=== PATIENT | female | born 1970 | race African-American/Black ===

== ENCOUNTER 2016-11-21 14:07 | Inpatient (IN) | payer OTHER ==
[2016-11-21 16:32] VITALS: BMI 31.3
--- NOTE | 2016-11-21 17:24 | HP ---
Admission ROS [facility] Chief Complaint: I WANT TO GO TO REHAB Allergies/Adverse Reactions: Allergies Allergy/AdvReac Type Severity Reaction Status Date / Time ampicillin Allergy Severe Swelling Verified 11/21/16 16:55 ciprofloxacin [From Cipro] Allergy Severe Swelling Verified 11/21/16 16:55 ciprofloxacin HCl Allergy Severe Swelling Verified 11/21/16 16:55 [From Cipro] kiwi Allergy Severe Rash Verified 11/21/16 16:55 History of Present Illness: 46 YEARS OLD FEMALE WITH LONG HISTORY OF ALCOHOL DEPENDENCE, HAS HYPERTENSION, CHRONIC PANCREATITIS, ANXIETY AND DEPRESSION, FELL "WEEK" AGO TREATED AT [facility] NEGATIVE CT SCAN OF THE HEAD, FEW BRUISES SCATTLE, LONGEST SOBRIETY 2 YEARS IS ADMITTED TO REHAB Exam Limitations: No Limitations - Ebola screening Have you traveled outside of the country in the last 21 days: No Have you had contact with anyone from an Ebola affected area: No Have you been sick,other than usual withdrawal symptoms: No Do you have a fever: No - Review of Systems Constitutional: Weight Stable EENT: reports: Other (EYE GLASSES) Respiratory: reports: No Symptoms reported Cardiac: reports: No Symptoms Reported GI: reports: Diarrhea : reports: No Symptoms Reported Musculoskeletal: reports: Joint Pain (KNEES), Muscle Weakness (LEFT LEG = CANE) Integumentary: reports: Bruising Neuro: reports: No Symptoms reported Endocrine: reports: No Symptoms Reported Hematology: reports: Easy Bruising Psychiatric: reports: Judgement Intact, Orientated x3, Anxious, Depressed Other Systems: Reviewed and Negative Patient History - Patient Medical History Hx Anemia: Yes (NOT ON MEDS) Hx Asthma: No Hx Chronic Obstructive Pulmonary Disease (COPD): No Hx Cancer: No Hx Cardiac Disorders: No Hx Congestive Heart Failure: No Hx Hypertension: Yes (ON HCTZ) Hx Hypercholesterolemia: No Hx Pacemaker: No HX Cerebrovascular Accident: No Hx Seizures: Yes (alcohol related once in 2010 NO TREATMENT) Hx Dementia: No Hx Diabetes: No Hx Gastrointestinal Disorders: Yes (PANCREATIC INSUFFICIENCY HAS NOT TAKEN CREON IN MONTHS) Hx Liver Disease: Yes (FATTY LIVER) Hx Genitourinary Disorders: No Hx Sexually Transmitted Disorders: No Hx Renal Disease (ESRD): No Hx Thyroid Disease: No Hx Human Immunodeficiency Virus (HIV): No Hx Hepatitis C: No Hx Depression: Yes Hx Suicide Attempt: No Hx Bipolar Disorder: No Hx Schizophrenia: No - Patient Surgical History Past Surgical History: No Hx Neurologic Surgery: No Hx Cataract Extraction: No Hx Cardiac Surgery: No Hx Lung Surgery: No Hx Breast Surgery: No Hx Breast Biopsy: No Hx Abdominal Surgery: No Hx Appendectomy: No Hx Cholecystectomy: No Hx Genitourinary Surgery: No Hx Section: No Hx Orthopedic Surgery: No - PPD History Previous Implant?: Yes Documented Results: Negative w/proof Implanted On Prior [facility] Admission?: Yes Date: 01/28/16 Results: 0mm PPD to be Administered?: No - Reproductive History Patient is a Female of Child Bearing Age (11 -55 yrs old): Yes Last Menstrual Period: 10/21/16 Patient : No - Smoking Cessation Smoking history: Never smoked Have you smoked in the past 12 months: No Hx Chewing Tobacco Use: No Initiated information on smoking cessation: No - Substance & Tx. History Hx Alcohol Use: Yes Hx Substance Use: No Substance Use Type: Alcohol Hx Substance Use Treatment: Yes - Substances Abused Alcohol Route: Oral Frequency: Daily Amount used: 1 1/2 PINT VOLKA + BEER Age of first use: 25 Date of Last Use: 11/14/16 Family Disease History - Family Disease History Family Disease History: Diabetes: Mother (), CA: Father (PROSTATE), Other: Mother Admission Physical Exam S - Vital Signs Vital Signs: Vital Signs - 24 hr 11/21/16 16:29 Temperature 96.2 F L Pulse Rate 89 Respiratory 20 Rate Blood Pressure 149/90 - Physical General Appearance: Yes: No Apparent Distress, Appropriately Dressed, Obese HEENTM: Yes: Hearing grossly Normal, Normal ENT Inspection, Normocephalic, Normal Voice Respiratory: Yes: Chest Non-Tender, Lungs Clear, Normal Breath Sounds, No Respiratory Distress, No Accessory Muscle Use Neck: Yes: Supple, Trachea in good position Breast: Yes: Breasts Symetrical Cardiology: Yes: Regular Rhythm, Regular Rate, S1, S2 Abdominal: Yes: Non Tender, Soft, Increased Bowel Sounds Genitourinary: Yes: Within Normal Limits Back: Yes: Normal Inspection Musculoskeletal: Yes: full range of Motion, Gait Steady, Muscle Pain (KNEES), Muscle weakness (CANE) Extremities: Yes: Non-Tender Neurological: Yes: Fully Oriented, Alert, Motor Strength 5/5, Depressed Affect Integumentary: Yes: Warm Lymphatic: Yes: Within Normal Limits - Diagnostic (1) Alcohol dependence with uncomplicated withdrawal Current Visit: Yes Status: Acute (2) Hypertension Current Visit: Yes Status: Acute Qualifiers: Hypertension type: essential hypertension Qualified Code(s): I10 - Essential (primary) hypertension (3) Pancreatic insufficiency Current Visit: Yes Status: Acute (4) GERD (gastroesophageal reflux disease) Current Visit: Yes Status: Acute Qualifiers: Esophagitis presence: without esophagitis Qualified Code(s): K21.9 - Gastro-esophageal reflux disease without esophagitis (5) Fatty liver Current Visit: Yes Status: Chronic (6) Use of cane as ambulatory aid Current Visit: Yes Status: Acute Cleared for Admission [facility] - Detox or Rehab Detox Regimen/Protocol: Not Applicable Claeared for Rehab Admission: Yes [facility] Breath Alcohol Content Breath Alcohol Content: 0 Urine Pregancy Test - Result Urine Test Results: Negative- NO Line Present Urine Drug Screen - Results Drug Screen Negative: No Urine Drug Screen Results: BZO-Benzodiazepines
[2016-11-21] MEDS ORDERED: MAGNESIUM CITRATE 300 ML BOTTLE PO PRN (17:31)
[2016-11-21] MEDS ORDERED: MENTHOL/PHENOL 1 EACH UD MM PRN (17:31)
[2016-11-21] MEDS ORDERED: ACETAMINOPHEN 325 MG TABLET (FP) PO PRN (17:31)
[2016-11-21] MEDS ORDERED: P-EPHED 60MG/TRIPROLIDI 2.5MG TABLET PO PRN (17:31)
[2016-11-21] MEDS ORDERED: LOPERAMIDE HCL 2 MG CAPSULE PO PRN (17:31)
[2016-11-21] MEDS ORDERED: guaiFENesin/D-METHORPHAN HB 10 ML UNIT-DOSE CUPS PO PRN (17:31)
[2016-11-21] MEDS ORDERED: MAG HYDROX/AL HYDROX/SIMETH 30 ML UNIT-DOSE CUP PO PRN (17:31)
[2016-11-21] MEDS ORDERED: IBUPROFEN 400 MG TABLET (FP) PO PRN (17:31)
[2016-11-21] MEDS ORDERED: cloNIDine HCL 0.1 MG TABLET PO PRN (17:33)
--- NOTE | 2016-11-21 20:47 | PN ---
[facility] Progress Note Note: Psychiatry Attending-director of investigations note : Asked to enter orders for trazodone + buspar (patient's request). Chart reviewed.Ms Guzmán is already known from this service. Medications reconciled.Pharmacy claims (10/18/16) revisited. Doses verified. Intervention : Buspar 10 mg po bid Trazodone 50 mg po hs. Discussed with nurse on duty.
[2016-11-21] MEDS: THIAMINE HCL 100 MG TABLET (FP) PO SCH (21:48)
[2016-11-21] MEDS: busPIRone HCL 10 MG TABLET (FP) PO SCH (21:49)
[2016-11-21] MEDS: traZODone HCL 50 MG TABLET (FP) PO SCH (21:49)
[2016-11-21] MEDS: RANITIDINE HCL 150 MG TABLET (FP) PO SCH (21:49)
[2016-11-21 23:10] LABS: URINE APPEARANCE CLEAR; URINE BILIRUBIN NEGATIVE (NEGATIVE); URINE BLOOD NEGATIVE (NEGATIVE); URINE COLOR LT. YELLOW; URINE GLUCOSE (UA) NEGATIVE (NEGATIVE); URINE KETONE NEGATIVE (NEGATIVE); URINE LEUK ESTERASE NEGATIVE (NEGATIVE); URINE NITRITE NEGATIVE (NEGATIVE); URINE PROTEIN NEGATIVE (NEGATIVE); URINE UROBILINOGEN 0.2 E.U/dl E.U./dl (0.2-1.0)
[2016-11-22] MEDS ORDERED: PT OWN MED DRAWER 7, Y5N ONE ×4 (03:18→22:48)
[2016-11-22] MEDS: LIPASE/PROTEASE/AMYLASE 6,000 UNIT CAPSULE PO SCH ×3 (07:27→18:06)
[2016-11-22 10:13] LABS: MCH 26.7 pg (25.7-33.7); MEAN CELL VOLUME 83.5 fl (80-96); MEAN PLT VOLUME 8.7 fl (7.5-11.1); PLATELET COUNT 175 K/MM3 (134-434); RDW 27.5 % (11.6-15.6); WHITE BLOOD COUNT 7.3 K/mm3 (4.0-10.0)
[2016-11-22] MEDS: busPIRone HCL 10 MG TABLET (FP) PO SCH ×2 (10:15→21:08)
[2016-11-22] MEDS: PRENATAL VITAMINS W/ FOLIC ACID TABLET (FP) PO SCH (10:15)
[2016-11-22] MEDS: HYDROCHLOROTHIAZIDE 12.5 MG CAPSULE (FP) PO SCH (10:15)
[2016-11-22] MEDS: RANITIDINE HCL 150 MG TABLET (FP) PO SCH (10:15)
[2016-11-22 10:47] LABS: ALBUMIN 3.3 g/dl (3.4-5.0); ALK PHOS 83 U/L (45-117); ANION GAP 10 (8-16); BILIRUBIN,TOTAL 0.6 mg/dL (0.2-1.0); CALCIUM 8.1 mg/dL (8.5-10.1); CO2 26 mmol/L (21-32); CREATININE 0.7 mg/dL (0.55-1.02); GLUCOSE,RANDOM 109 mg/dL (74-106); SGOT/AST 42 U/L (15-37); SGPT/ALT 44 U/L (12-78); THYROID STIMULATING HORMONE 8.32 uIU/ml (0.358-3.74); TOT PROT 6.9 g/dl (6.4-8.2)
--- NOTE | 2016-11-22 16:17 | EKG ---
Test Reason : Blood Pressure : / mmHG Vent. Rate : 106 BPM Atrial Rate : 106 BPM P-R Int : 160 ms QRS Dur : 090 ms QT Int : 352 ms P-R-T Axes : 062 047 058 degrees QTc Int : 467 ms SINUS TACHYCARDIA NONSPECIFIC T WAVE ABNORMALITY ABNORMAL ECG NO PREVIOUS ECGS AVAILABLE Confirmed by ROCHELLE JOINER MD ([id number]) on 11/22/2016 4:16:45 PM Referred By: Brittnee Martinez Confirmed By:ROCHELLE JOINER MD
[2016-11-22] MEDS: traZODone HCL 50 MG TABLET (FP) PO SCH (21:08)
[2016-11-22] MEDS: THIAMINE HCL 100 MG TABLET (FP) PO SCH (21:08)
[2016-11-23] MEDS: diphenhydrAMINE HCL 50 MG CAPSULE PO PRN ×2 (00:40→21:18)
[2016-11-23] MEDS ORDERED: PT OWN MED DRAWER 7, Y5N ONE ×3 (03:40→16:58)
[2016-11-23] MEDS: LIPASE/PROTEASE/AMYLASE 6,000 UNIT CAPSULE PO SCH ×3 (07:29→17:12)
[2016-11-23] MEDS: IBUPROFEN 600 MG TABLET (FP) PO PRN (09:01)
--- NOTE | 2016-11-23 10:03 | HP ---
Psychiatrist Admission - Data Date of interview: 11/23/16 Admission source: [facility] Identifying data: This is the third admission to [address] [place] [address] for this 46 years old single AA female michelle,domiciled, supported by [facility]. Medical History: GERD,Fatty liver,Pancreatic insufficiency,HTN,Anemia, Cholecystitis. Psychiatric History: Patient was dx with Asperger's syndrome since HS.She also admits severe anxiety.Patient was dx with Mood disorder and is under care of at [facility] in the [place].Current medications: Buspar 10 mg po bid and Trazodone 50 mg po hs. Physical/Sexual Abuse/Trauma History: denies Vital Signs: Vital Signs - 24 hr 11/22/16 11/23/16 11/23/16 10:14 03:30 06:54 Temperature 97.5 F L Pulse Rate 96 H 82 Respiratory 16 18 Rate Blood Pressure 130/80 116/70 Allergies/Adverse Reactions: Allergies Allergy/AdvReac Type Severity Reaction Status Date / Time ampicillin Allergy Severe Swelling Verified 11/21/16 16:55 ciprofloxacin [From Cipro] Allergy Severe Swelling Verified 11/21/16 16:55 ciprofloxacin HCl Allergy Severe Swelling Verified 11/21/16 16:55 [From Cipro] kiwi Allergy Severe Rash Verified 11/21/16 16:55 Date of last physical exam: 11/21/16 Concur with the findings of this exam: Yes - Substance Abuse/Tx History Hx Alcohol Use: Yes (reports drinking since 39 yo,1 pint of rum every other day) Hx Substance Use: No Substance Use Type: Alcohol Hx Substance Use Treatment: Yes (completed this program in March 2016) - Admission Criteria Previous failed treatment: Yes Poor recovery environment: Yes Comorbidities: Yes Lacks judgement: Yes Mental Status Exam - Mental Status Exam Alert and Oriented to: Time, Place, Person Cognitive Function: Grossly Intact Patient Appearance: Unkempt Mood: Anxious Affect: Labile Patient Behavior: Cooperative Speech Pattern: Clear Voice Loudness: Normal Thought Process: Goal Oriented Hallucinations: Denies Suicidal Ideation: Denies Homicidal Ideation: Denies Insight/Judgement: Fair Sleep: Difficulty falling asleep Appetite: Good Muscle strength/Tone: Normal Gait/Station: Normal Psychiatric Findings - Problem List ([place] 1, 2,3) (1) Alcohol dependence with uncomplicated withdrawal Current Visit: Yes Status: Chronic (2) GERD (gastroesophageal reflux disease) Current Visit: Yes Status: Chronic Qualifiers: Esophagitis presence: without esophagitis Qualified Code(s): K21.9 - Gastro-esophageal reflux disease without esophagitis (3) Hypertension Current Visit: Yes Status: Chronic Qualifiers: Hypertension type: essential hypertension Qualified Code(s): I10 - Essential (primary) hypertension (4) Pancreatic insufficiency Current Visit: Yes Status: Chronic (5) Fatty liver Current Visit: Yes Status: Chronic (6) Alcohol-induced mood disorder Current Visit: Yes Status: Chronic - Initial Treatment Plan Initial Treatment Plan: Continue Buspar 10 mg po tid and Trazodone 50 mg po hs.Will monitor progress.
[2016-11-23] MEDS: PRENATAL VITAMINS W/ FOLIC ACID TABLET (FP) PO SCH (10:32)
[2016-11-23] MEDS: busPIRone HCL 10 MG TABLET (FP) PO SCH ×3 (10:32→21:17)
[2016-11-23] MEDS: HYDROCHLOROTHIAZIDE 12.5 MG CAPSULE (FP) PO SCH (10:32)
[2016-11-23] MEDS: hydrOXYzine PAMOATE 50 MG CAPSULE (FP) PO PRN (10:34)
[2016-11-23] MEDS: THIAMINE HCL 100 MG TABLET (FP) PO SCH (21:17)
[2016-11-23] MEDS: traZODone HCL 50 MG TABLET (FP) PO SCH (21:17)
[2016-11-24] MEDS: IBUPROFEN 600 MG TABLET (FP) PO PRN ×4 (00:16→21:22)
[2016-11-24] MEDS: busPIRone HCL 10 MG TABLET (FP) PO SCH ×3 (06:36→21:20)
[2016-11-24] MEDS: LIPASE/PROTEASE/AMYLASE 6,000 UNIT CAPSULE PO SCH ×3 (07:58→18:20)
[2016-11-24] MEDS: HYDROCHLOROTHIAZIDE 12.5 MG CAPSULE (FP) PO SCH (09:55)
[2016-11-24] MEDS: PRENATAL VITAMINS W/ FOLIC ACID TABLET (FP) PO SCH (09:55)
[2016-11-24] MEDS ORDERED: PT OWN MED DRAWER 7, Y5N ONE (18:18)
[2016-11-24] MEDS: MAGNESIUM HYDROX 2400MG/30ML ORAL SUSPENSION 30 ML CUP PO PRN (18:19)
[2016-11-24] MEDS: THIAMINE HCL 100 MG TABLET (FP) PO SCH (21:20)
[2016-11-24] MEDS: traZODone HCL 50 MG TABLET (FP) PO SCH (21:20)
[2016-11-25] MEDS: diphenhydrAMINE HCL 50 MG CAPSULE PO PRN ×2 (00:55→21:17)
[2016-11-25] MEDS ORDERED: PT OWN MED DRAWER 7, Y5N ONE ×2 (05:38→17:11)
[2016-11-25] MEDS: IBUPROFEN 600 MG TABLET (FP) PO PRN ×2 (06:48→17:14)
[2016-11-25] MEDS: busPIRone HCL 10 MG TABLET (FP) PO SCH ×3 (06:49→21:17)
[2016-11-25] MEDS: LIPASE/PROTEASE/AMYLASE 6,000 UNIT CAPSULE PO SCH ×3 (07:43→17:12)
[2016-11-25] MEDS: HYDROCHLOROTHIAZIDE 12.5 MG CAPSULE (FP) PO SCH (09:45)
[2016-11-25] MEDS: PRENATAL VITAMINS W/ FOLIC ACID TABLET (FP) PO SCH (09:45)
[2016-11-25] MEDS: traZODone HCL 50 MG TABLET (FP) PO SCH (21:17)
[2016-11-25] MEDS: THIAMINE HCL 100 MG TABLET (FP) PO SCH (21:17)
[2016-11-26] MEDS ORDERED: PT OWN MED DRAWER 7, Y5N ONE ×2 (05:39→16:48)
[2016-11-26] MEDS: busPIRone HCL 10 MG TABLET (FP) PO SCH ×3 (06:38→21:12)
[2016-11-26] MEDS: IBUPROFEN 600 MG TABLET (FP) PO PRN ×2 (06:38→13:09)
[2016-11-26] MEDS: LIPASE/PROTEASE/AMYLASE 6,000 UNIT CAPSULE PO SCH ×3 (08:22→17:21)
[2016-11-26] MEDS: PRENATAL VITAMINS W/ FOLIC ACID TABLET (FP) PO SCH (09:42)
[2016-11-26] MEDS: HYDROCHLOROTHIAZIDE 12.5 MG CAPSULE (FP) PO SCH (09:42)
[2016-11-26] MEDS: hydrOXYzine PAMOATE 50 MG CAPSULE (FP) PO PRN (09:45)
[2016-11-26] MEDS: traZODone HCL 50 MG TABLET (FP) PO SCH (21:12)
[2016-11-26] MEDS: THIAMINE HCL 100 MG TABLET (FP) PO SCH (21:12)
[2016-11-26] MEDS: diphenhydrAMINE HCL 50 MG CAPSULE PO PRN (21:14)
[2016-11-27] MEDS: IBUPROFEN 600 MG TABLET (FP) PO PRN ×3 (05:57→21:20)
[2016-11-27] MEDS: busPIRone HCL 10 MG TABLET (FP) PO SCH ×3 (05:57→21:22)
[2016-11-27] MEDS ORDERED: PT OWN MED DRAWER 7, Y5N ONE ×3 (06:30→17:04)
[2016-11-27] MEDS: LIPASE/PROTEASE/AMYLASE 6,000 UNIT CAPSULE PO SCH ×3 (07:54→18:01)
[2016-11-27] MEDS: HYDROCHLOROTHIAZIDE 12.5 MG CAPSULE (FP) PO SCH (09:51)
[2016-11-27] MEDS: PRENATAL VITAMINS W/ FOLIC ACID TABLET (FP) PO SCH (09:51)
[2016-11-27] MEDS: FERROUS SO4 325 MG TABLET (FP) PO SCH (18:01)
[2016-11-27] MEDS: THIAMINE HCL 100 MG TABLET (FP) PO SCH (21:18)
[2016-11-27] MEDS: traZODone HCL 50 MG TABLET (FP) PO SCH (21:18)
[2016-11-27] MEDS: diphenhydrAMINE HCL 50 MG CAPSULE PO PRN (21:18)
[2016-11-28] MEDS ORDERED: PT OWN MED DRAWER 7, Y5N ONE ×5 (03:05→19:42)
[2016-11-28] MEDS: busPIRone HCL 10 MG TABLET (FP) PO SCH ×3 (06:47→21:16)
[2016-11-28] MEDS: LIPASE/PROTEASE/AMYLASE 6,000 UNIT CAPSULE PO SCH ×3 (07:16→18:07)
[2016-11-28] MEDS: FERROUS SO4 325 MG TABLET (FP) PO SCH ×3 (07:16→18:07)
[2016-11-28] MEDS: IBUPROFEN 600 MG TABLET (FP) PO PRN ×2 (07:17→18:09)
[2016-11-28] MEDS: HYDROCHLOROTHIAZIDE 12.5 MG CAPSULE (FP) PO SCH (09:51)
[2016-11-28] MEDS: PRENATAL VITAMINS W/ FOLIC ACID TABLET (FP) PO SCH (09:52)
[2016-11-28] MEDS: hydrOXYzine PAMOATE 50 MG CAPSULE (FP) PO PRN (11:58)
[2016-11-28] MEDS: THIAMINE HCL 100 MG TABLET (FP) PO SCH (21:16)
[2016-11-28] MEDS: traZODone HCL 50 MG TABLET (FP) PO SCH (21:16)
[2016-11-28] MEDS: diphenhydrAMINE HCL 50 MG CAPSULE PO PRN (21:17)
[2016-11-28] MEDS: MAGNESIUM HYDROX 2400MG/30ML ORAL SUSPENSION 30 ML CUP PO PRN (21:18)
[2016-11-29] MEDS ORDERED: PT OWN MED DRAWER 7, Y5N ONE ×2 (03:09→16:41)
[2016-11-29] MEDS: busPIRone HCL 10 MG TABLET (FP) PO SCH ×3 (06:25→21:16)
[2016-11-29] MEDS: IBUPROFEN 600 MG TABLET (FP) PO PRN ×2 (07:59→21:17)
[2016-11-29] MEDS: FERROUS SO4 325 MG TABLET (FP) PO SCH ×3 (07:59→18:04)
[2016-11-29] MEDS: LIPASE/PROTEASE/AMYLASE 6,000 UNIT CAPSULE PO SCH ×3 (07:59→18:04)
[2016-11-29] MEDS: HYDROCHLOROTHIAZIDE 12.5 MG CAPSULE (FP) PO SCH (09:59)
[2016-11-29] MEDS: PRENATAL VITAMINS W/ FOLIC ACID TABLET (FP) PO SCH (09:59)
[2016-11-29] MEDS: traZODone HCL 50 MG TABLET (FP) PO SCH (21:16)
[2016-11-29] MEDS: THIAMINE HCL 100 MG TABLET (FP) PO SCH (21:16)
[2016-11-29] MEDS: diphenhydrAMINE HCL 50 MG CAPSULE PO PRN (21:18)
[2016-11-30] MEDS ORDERED: PT OWN MED DRAWER 7, Y5N ONE ×5 (05:31→22:50)
[2016-11-30] MEDS: busPIRone HCL 10 MG TABLET (FP) PO SCH ×3 (06:12→21:17)
[2016-11-30] MEDS: IBUPROFEN 600 MG TABLET (FP) PO PRN (06:13)
[2016-11-30] MEDS: LIPASE/PROTEASE/AMYLASE 6,000 UNIT CAPSULE PO SCH ×3 (07:52→18:13)
[2016-11-30] MEDS: FERROUS SO4 325 MG TABLET (FP) PO SCH ×3 (07:52→18:12)
[2016-11-30] MEDS: HYDROCHLOROTHIAZIDE 12.5 MG CAPSULE (FP) PO SCH (09:47)
[2016-11-30] MEDS: PRENATAL VITAMINS W/ FOLIC ACID TABLET (FP) PO SCH (09:47)
[2016-11-30] MEDS: MAGNESIUM HYDROX 2400MG/30ML ORAL SUSPENSION 30 ML CUP PO PRN (13:49)
[2016-11-30] MEDS: diphenhydrAMINE HCL 50 MG CAPSULE PO PRN (21:17)
[2016-11-30] MEDS: THIAMINE HCL 100 MG TABLET (FP) PO SCH (21:17)
[2016-11-30] MEDS: traZODone HCL 50 MG TABLET (FP) PO SCH (21:17)
[2016-12-01] MEDS: busPIRone HCL 10 MG TABLET (FP) PO SCH ×3 (06:19→21:10)
[2016-12-01] MEDS: FERROUS SO4 325 MG TABLET (FP) PO SCH ×3 (08:05→17:06)
[2016-12-01] MEDS: LIPASE/PROTEASE/AMYLASE 6,000 UNIT CAPSULE PO SCH ×3 (08:05→17:06)
[2016-12-01] MEDS: HYDROCHLOROTHIAZIDE 12.5 MG CAPSULE (FP) PO SCH (09:52)
[2016-12-01] MEDS: PRENATAL VITAMINS W/ FOLIC ACID TABLET (FP) PO SCH (09:52)
[2016-12-01] MEDS: hydrOXYzine PAMOATE 50 MG CAPSULE (FP) PO PRN (09:54)
[2016-12-01] MEDS ORDERED: PT OWN MED DRAWER 7, Y5N ONE (16:39)
[2016-12-01] MEDS: traZODone HCL 50 MG TABLET (FP) PO SCH (21:11)
[2016-12-01] MEDS: THIAMINE HCL 100 MG TABLET (FP) PO SCH (21:11)
[2016-12-01] MEDS: diphenhydrAMINE HCL 50 MG CAPSULE PO PRN (21:12)
[2016-12-01] MEDS: IBUPROFEN 600 MG TABLET (FP) PO PRN (21:12)
[2016-12-02] MEDS ORDERED: PT OWN MED DRAWER 7, Y5N ONE ×4 (03:11→16:16)
[2016-12-02] MEDS: IBUPROFEN 600 MG TABLET (FP) PO PRN ×2 (06:02→21:12)
[2016-12-02] MEDS: busPIRone HCL 10 MG TABLET (FP) PO SCH ×3 (06:03→21:11)
[2016-12-02] MEDS: FERROUS SO4 325 MG TABLET (FP) PO SCH ×3 (07:28→17:01)
[2016-12-02] MEDS: LIPASE/PROTEASE/AMYLASE 6,000 UNIT CAPSULE PO SCH ×3 (07:28→17:01)
[2016-12-02] MEDS: PRENATAL VITAMINS W/ FOLIC ACID TABLET (FP) PO SCH (09:37)
[2016-12-02] MEDS: HYDROCHLOROTHIAZIDE 12.5 MG CAPSULE (FP) PO SCH (09:37)
[2016-12-02] MEDS: traZODone HCL 50 MG TABLET (FP) PO SCH (21:11)
[2016-12-02] MEDS: diphenhydrAMINE HCL 50 MG CAPSULE PO PRN (21:11)
[2016-12-02] MEDS: THIAMINE HCL 100 MG TABLET (FP) PO SCH (21:11)
[2016-12-03] MEDS ORDERED: PT OWN MED DRAWER 7, Y5N ONE ×4 (03:10→23:39)
[2016-12-03] MEDS: busPIRone HCL 10 MG TABLET (FP) PO SCH ×3 (06:22→21:29)
[2016-12-03] MEDS: FERROUS SO4 325 MG TABLET (FP) PO SCH ×3 (07:55→18:25)
[2016-12-03] MEDS: LIPASE/PROTEASE/AMYLASE 6,000 UNIT CAPSULE PO SCH ×3 (07:56→17:25)
[2016-12-03] MEDS: PRENATAL VITAMINS W/ FOLIC ACID TABLET (FP) PO SCH (10:06)
[2016-12-03] MEDS: HYDROCHLOROTHIAZIDE 12.5 MG CAPSULE (FP) PO SCH (10:06)
[2016-12-03] MEDS: hydrOXYzine PAMOATE 50 MG CAPSULE (FP) PO PRN (10:07)
[2016-12-03] MEDS: IBUPROFEN 600 MG TABLET (FP) PO PRN ×2 (13:12→21:30)
[2016-12-03] MEDS: THIAMINE HCL 100 MG TABLET (FP) PO SCH (21:29)
[2016-12-03] MEDS: traZODone HCL 50 MG TABLET (FP) PO SCH (21:29)
[2016-12-03] MEDS: diphenhydrAMINE HCL 50 MG CAPSULE PO PRN (21:30)
[2016-12-04] MEDS ORDERED: PT OWN MED DRAWER 7, Y5N ONE ×4 (05:51→17:08)
[2016-12-04] MEDS: busPIRone HCL 10 MG TABLET (FP) PO SCH ×3 (06:30→21:23)
[2016-12-04] MEDS: FERROUS SO4 325 MG TABLET (FP) PO SCH ×3 (07:39→17:50)
[2016-12-04] MEDS: LIPASE/PROTEASE/AMYLASE 6,000 UNIT CAPSULE PO SCH ×3 (08:04→17:51)
[2016-12-04] MEDS: HYDROCHLOROTHIAZIDE 12.5 MG CAPSULE (FP) PO SCH (10:21)
[2016-12-04] MEDS: PRENATAL VITAMINS W/ FOLIC ACID TABLET (FP) PO SCH (10:21)
[2016-12-04] MEDS: IBUPROFEN 600 MG TABLET (FP) PO PRN (10:22)
[2016-12-04] MEDS: MAGNESIUM HYDROX 2400MG/30ML ORAL SUSPENSION 30 ML CUP PO PRN (15:51)
[2016-12-04] MEDS: diphenhydrAMINE HCL 50 MG CAPSULE PO PRN (21:23)
[2016-12-04] MEDS: THIAMINE HCL 100 MG TABLET (FP) PO SCH (21:23)
[2016-12-04] MEDS: traZODone HCL 50 MG TABLET (FP) PO SCH (21:23)
[2016-12-05] MEDS ORDERED: PT OWN MED DRAWER 7, Y5N ONE ×4 (03:03→16:57)
[2016-12-05] MEDS: busPIRone HCL 10 MG TABLET (FP) PO SCH ×3 (06:37→21:22)
[2016-12-05] MEDS: LIPASE/PROTEASE/AMYLASE 6,000 UNIT CAPSULE PO SCH ×3 (07:45→17:02)
[2016-12-05] MEDS: FERROUS SO4 325 MG TABLET (FP) PO SCH ×3 (07:45→17:02)
[2016-12-05] MEDS: HYDROCHLOROTHIAZIDE 12.5 MG CAPSULE (FP) PO SCH (10:13)
[2016-12-05] MEDS: PRENATAL VITAMINS W/ FOLIC ACID TABLET (FP) PO SCH (10:13)
[2016-12-05] MEDS: THIAMINE HCL 100 MG TABLET (FP) PO SCH (21:22)
[2016-12-05] MEDS: traZODone HCL 50 MG TABLET (FP) PO SCH (21:22)
[2016-12-05] MEDS: diphenhydrAMINE HCL 50 MG CAPSULE PO PRN (21:23)
[2016-12-06] MEDS ORDERED: PT OWN MED DRAWER 7, Y5N ONE ×4 (03:07→16:18)
[2016-12-06] MEDS: busPIRone HCL 10 MG TABLET (FP) PO SCH ×3 (06:40→21:14)
[2016-12-06] MEDS: FERROUS SO4 325 MG TABLET (FP) PO SCH ×3 (07:44→17:08)
[2016-12-06] MEDS: LIPASE/PROTEASE/AMYLASE 6,000 UNIT CAPSULE PO SCH ×3 (07:45→17:09)
[2016-12-06] MEDS: HYDROCHLOROTHIAZIDE 12.5 MG CAPSULE (FP) PO SCH (10:16)
[2016-12-06] MEDS: PRENATAL VITAMINS W/ FOLIC ACID TABLET (FP) PO SCH (10:16)
[2016-12-06] MEDS: diphenhydrAMINE HCL 50 MG CAPSULE PO PRN (21:14)
[2016-12-06] MEDS: traZODone HCL 50 MG TABLET (FP) PO SCH (21:14)
[2016-12-06] MEDS: THIAMINE HCL 100 MG TABLET (FP) PO SCH (21:14)
[2016-12-07] MEDS ORDERED: PT OWN MED DRAWER 7, Y5N ONE ×3 (03:17→17:34)
[2016-12-07] MEDS: busPIRone HCL 10 MG TABLET (FP) PO SCH ×3 (06:18→21:19)
[2016-12-07] MEDS: IBUPROFEN 600 MG TABLET (FP) PO PRN (06:18)
[2016-12-07] MEDS: LIPASE/PROTEASE/AMYLASE 6,000 UNIT CAPSULE PO SCH ×3 (07:34→17:42)
[2016-12-07] MEDS: FERROUS SO4 325 MG TABLET (FP) PO SCH ×3 (07:34→17:42)
[2016-12-07] MEDS: HYDROCHLOROTHIAZIDE 12.5 MG CAPSULE (FP) PO SCH (10:05)
[2016-12-07] MEDS: PRENATAL VITAMINS W/ FOLIC ACID TABLET (FP) PO SCH (10:05)
[2016-12-07] MEDS: hydrOXYzine PAMOATE 50 MG CAPSULE (FP) PO PRN (20:09)
[2016-12-07] MEDS: diphenhydrAMINE HCL 50 MG CAPSULE PO PRN (21:19)
[2016-12-07] MEDS: traZODone HCL 50 MG TABLET (FP) PO SCH (21:19)
[2016-12-07] MEDS: THIAMINE HCL 100 MG TABLET (FP) PO SCH (21:19)
[2016-12-08] MEDS: busPIRone HCL 10 MG TABLET (FP) PO SCH ×3 (06:40→21:28)
[2016-12-08] MEDS: FERROUS SO4 325 MG TABLET (FP) PO SCH ×3 (07:08→17:51)
[2016-12-08] MEDS ORDERED: PT OWN MED DRAWER 7, Y5N ONE ×3 (07:30→17:22)
[2016-12-08] MEDS: LIPASE/PROTEASE/AMYLASE 6,000 UNIT CAPSULE PO SCH ×3 (08:21→17:51)
[2016-12-08] MEDS: PRENATAL VITAMINS W/ FOLIC ACID TABLET (FP) PO SCH (09:58)
[2016-12-08] MEDS: HYDROCHLOROTHIAZIDE 12.5 MG CAPSULE (FP) PO SCH (09:58)
[2016-12-08] MEDS: IBUPROFEN 600 MG TABLET (FP) PO PRN (12:43)
[2016-12-08] MEDS: THIAMINE HCL 100 MG TABLET (FP) PO SCH (21:28)
[2016-12-08] MEDS: traZODone HCL 50 MG TABLET (FP) PO SCH (21:28)
[2016-12-08] MEDS: diphenhydrAMINE HCL 50 MG CAPSULE PO PRN (21:29)
[2016-12-09] MEDS ORDERED: PT OWN MED DRAWER 7, Y5N ONE ×2 (05:52→17:31)
[2016-12-09] MEDS: busPIRone HCL 10 MG TABLET (FP) PO SCH ×3 (06:29→21:13)
[2016-12-09] MEDS: FERROUS SO4 325 MG TABLET (FP) PO SCH ×3 (07:03→17:31)
[2016-12-09] MEDS: LIPASE/PROTEASE/AMYLASE 6,000 UNIT CAPSULE PO SCH ×3 (07:56→17:31)
[2016-12-09] MEDS: HYDROCHLOROTHIAZIDE 12.5 MG CAPSULE (FP) PO SCH (10:05)
[2016-12-09] MEDS: PRENATAL VITAMINS W/ FOLIC ACID TABLET (FP) PO SCH (10:05)
[2016-12-09] MEDS: IBUPROFEN 600 MG TABLET (FP) PO PRN (18:05)
[2016-12-09] MEDS: THIAMINE HCL 100 MG TABLET (FP) PO SCH (21:13)
[2016-12-09] MEDS: traZODone HCL 50 MG TABLET (FP) PO SCH (21:13)
[2016-12-09] MEDS: diphenhydrAMINE HCL 50 MG CAPSULE PO PRN (21:15)
[2016-12-10] MEDS ORDERED: PT OWN MED DRAWER 7, Y5N ONE (05:54)
[2016-12-10] MEDS: busPIRone HCL 10 MG TABLET (FP) PO SCH (06:31)
[2016-12-10 07:29] VITALS: TEMP 97.9
[2016-12-10] MEDS: LIPASE/PROTEASE/AMYLASE 6,000 UNIT CAPSULE PO SCH (07:31)
[2016-12-10] MEDS: FERROUS SO4 325 MG TABLET (FP) PO SCH (07:31)
--- NOTE | 2016-12-10 09:14 | PN ---
[id number] 65 18-18 143/85 Date of Session: 12/10/16 Chief Complaint:: Discharge visit HPI: Patient addressed Alcohol dependence comorbid with Alcohol induced mood disorder. ROS: Significant for Fatty liver,HTN,PAncreatic insufficiency,GERD. Current Medications: Active Medications Generic Name Dose Route Start Last Admin Trade Name Freq PRN Reason Stop Dose Admin Acetaminophen 650 mg 11/21/16 17:31 11/22/16 11:05 Tylenol - PO 650 mg Q4H PRN Administration PAIN Al Hydroxide/Mg Hydroxide 30 ml 11/21/16 17:31 Mylanta Oral Suspension - PO Q6H PRN DYSPEPSIA Buspirone HCl 10 mg 11/23/16 14:00 12/10/16 06:31 Buspar - PO 10 mg TID WENDY Administration Clonidine 0.1 mg 11/21/16 17:33 Catapres - PO Q6H PRN HYPERTENSION Diphenhydramine HCl 50 mg 11/21/16 17:31 12/09/16 21:15 Benadryl - PO 50 mg HSMR1 PRN Administration INSOMNIA Eucalyptus/Menthol/Phenol/Sorbitol 1 each 11/21/16 17:31 Cepastat Lozenge - MM Q4H PRN SORE THROAT Ferrous Sulfate 325 mg 11/27/16 17:30 12/10/16 07:31 Feosol - PO 325 mg TIDCM WENDY Administration Guaifenesin 10 ml 11/21/16 17:31 Robitussin Dm - PO Q6H PRN COUGH Hydrochlorothiazide 12.5 mg 11/22/16 10:00 12/09/16 10:05 Hctz - PO 12.5 mg DAILY WENDY Administration Hydroxyzine Pamoate 50 mg 11/21/16 17:31 12/07/16 20:09 Vistaril - PO 50 mg Q4H PRN Administration AGITATION Ibuprofen 600 mg 11/22/16 14:58 12/09/16 18:05 Motrin - PO 600 mg Q4H PRN Administration PAIN Loperamide HCl 4 mg 11/21/16 17:31 Imodium - PO Q6H PRN DIARRHEA Magnesium Citrate 300 ml 11/21/16 17:31 Citroma - PO Q48H PRN CONSTIPATION Magnesium Hydroxide 30 ml 11/21/16 17:31 12/04/16 15:51 Milk Of Magnesia - PO 30 ml DAILY PRN Administration CONSTIPATION Pancrelipase 1 cap 11/22/16 08:00 12/10/16 07:31 Katharine Felix 6,000 Units Capsule PO 1 cap TIDCM WENDY Administration Multivit/Folic Acid/Iron 1 tab 11/22/16 10:00 12/09/16 10:05 Vitamins (Sjr) - PO 1 tab DAILY WENDY Administration Pseudoephedrine/Triprolidine 1 combo 11/21/16 17:31 Actifed - PO TID PRN NASAL CONGESTION Thiamine HCl 100 mg 11/21/16 22:00 12/09/16 21:13 Vitamin B1 - PO 100 mg HS WENDY Administration Trazodone HCl 50 mg 11/21/16 22:00 12/09/16 21:13 Desyrel - PO 50 mg HS WENDY Administration Current Side Effect: No Lab tests ordered: No Lab tests reviewed: Yes Provider note:: Patient completed this program today.She has met her treatment goals and will continue to address her issues on outpatient basis at [facility].Patient continues to find that current medications Buspar 10 mg po tid and TRazodone 50 mg po hs help to reduce her insomnia, mood instability ,depression and anxiety.Scripts for 30 days supply provided. Therapy provided focusing on relapse prevention,coping skills,support utilization to maintain recovery. Patient is stable for discharge today. Total face to face time:: 30 Mental Status Exam - Mental Status Exam Alert and Oriented to: Time, Place, Person Cognitive Function: Grossly Intact Patient Appearance: Well Groomed Mood: Euthymic Affect: Mood Congruent Patient Behavior: Cooperative Speech Pattern: Clear Voice Loudness: Normal Thought Process: Goal Oriented Thought Disorder: Not Present Hallucinations: Denies Suicidal Ideation: Denies Homicidal Ideation: Denies Insight/Judgement: Fair Sleep: Fair Appetite: Good Muscle strength/Tone: Normal Gait/Station: Normal Psychiatric Treatment Plan - Problem List (2) GERD (gastroesophageal reflux disease) Qualifiers: Esophagitis presence: without esophagitis Qualified Code(s): K21.9 - Gastro-esophageal reflux disease without esophagitis (3) Hypertension Qualifiers: Hypertension type: essential hypertension Qualified Code(s): I10 - Essential (primary) hypertension
[2016-12-10 09:54] VITALS: BP 141/84; PULSE 98
[2016-12-10] MEDS: HYDROCHLOROTHIAZIDE 12.5 MG CAPSULE (FP) PO SCH (09:58)
[2016-12-10] MEDS: PRENATAL VITAMINS W/ FOLIC ACID TABLET (FP) PO SCH (09:59)
== END 2016-12-10 10:10 | disposition home or self-care (01) | DRG 772 ==
LOC: YASAS 14:07 → Y3E 18:06
PROVIDERS: ADMIT Psychiatry & Neurology Psychiatry; ATTEND Psychiatry & Neurology Psychiatry
PROC: HZ42ZZZ Group Counseling for Substance Abuse Treatment, Cognitive-Behavioral (ICD-10-PCS; principal; 2016-11-21)
DX: F10.24 Alcohol dependence with alcohol-induced mood disorder (principal); K21.9 Gastro-esophageal reflux disease without esophagitis; I10 Essential (primary) hypertension; K76.0 Fatty (change of) liver, not elsewhere classified; K86.89 Other specified diseases of pancreas; D64.9 Anemia, unspecified; Z86.69 Personal history of other diseases of the nervous system and sense organs
CPT/HCPCS: 36415; 80053; 81003; 84443; 85027; 86593; 93005; 93010